=== PATIENT | male | born 1980 | race American Indian/Alaskan Native ===

== ENCOUNTER 2020-04-30 20:27 | Emergency (ER) | payer SELFPAY ==
[2020-04-30 22:41] LABS: Basophils # (Auto) 0.1 K/mm3 (0.0-0.1); Basophils % (Auto) 0.7 % (0.0-1.8); Eosinophils % (Auto) 0.1 % (0.0-4.3); Hematocrit 45.7 % (35.5-45.6); Hemoglobin 14.8 gm/dl (11.8-15.2); Lymphocytes # (Auto) 2.3 K/mm3 (1.2-5.4); Lymphocytes % (Auto) 19.8 % (13.4-35.0); Mean Corpuscular HGB Conc 33 % (32-34); Mean Corpuscular Volume 89 fl (84-94); Monocytes % (Auto) 8.4 % (0.0-7.3); Platelet Count 259 K/mm3 (140-440); Red Blood Count 5.12 M/mm3 (3.65-5.03); Red Cell Distribution Width 14.2 % (13.2-15.2)
[2020-04-30 23:01] LABS: BUN/Creatinine Ratio 8; Blood Urea Nitrogen 10 mg/dL (9-20); Hemolysis Index 70
--- NOTE | 2020-04-30 23:37 | Emergency Department Report ---
<MIRIAM ZHUOLI Brady - Last Filed: 05/01/20 01:57> ED Psych HPI - General Chief Complaint: Psych Stated Complaint: DETOX HOMICIDAL Time Seen by Provider: 04/30/20 23:33 Source: patient Mode of arrival: Ambulatory Limitations: No Limitations - History of Present Illness Initial Comments: Patient is a 40-year-old male that presents emergency room with complaints of homicidal ideations, suicidal ideations, hallucinations, desires detox. Patient states he wants help getting off alcohol. Patient states he is suicidal ideatio ns air his plan is to cut his wrist. Patient states he is homicidal against everybody. Patient states he is seeing visions and hearing voices. Patient denies recent travel. Patient denies recent international travel. Patient denies exposure to the novel coronavirus. Patient denies sick contacts. Patient denies fever and chills. Patient denies cough. Patient denies diarrhea. Patient denies coming in contact with anybody with symptoms of the novel coronavirus. MD Complaint: suicidal ideation, feels depressed, other -: Sudden Associated Psychiatric Symptoms: depression, suicidal ideation, homicidal ideation, racing thoughts, auditory hallucinations, visual hallucinations History of same: Yes Quality: constant Improves With: therapy Worsens With: achohol Context: recent alcohol abuse, not taking psychiatric, significant life stressor Associated Symptoms: denies: confusion, headache, shortness of breath, nausea, vomiting, syncope, insomnia If Self Harm: admits thoughts of, has plan - Related Data Home Medications Medication Instructions Recorded Confirmed Last Taken No Known Home Medications [No 05/01/20 05/01/20 Unknown Reported Home Medications] Allergies Allergy/AdvReac Type Severity Reaction Status Date / Time egg Allergy Anaphylaxis Verified 04/30/20 21:49 ED Review of Systems Constitutional: denies: chills, fever Eyes: denies: eye pain, eye discharge, vision change ENT: denies: ear pain, throat pain Respiratory: denies: cough, shortness of breath, wheezing Cardiovascular: denies: chest pain, palpitations Endocrine: no symptoms reported Gastrointestinal: denies: abdominal pain, nausea, diarrhea Genitourinary: denies: urgency, dysuria Musculoskeletal: denies: back pain, joint swelling, arthralgia Skin: denies: rash, lesions Neurological: denies: headache, weakness, paresthesias Psychiatric: depression, auditory hallucinations, visual hallucinations, homicidal thoughts, suicidal thoughts. denies: anxiety Hematological/Lymphatic: denies: easy bleeding, easy bruising ED Past Medical Hx - Past Medical History Previous Medical History?: Yes Hx Psychiatric Treatment: Yes (Bipolar/ Schizophrenia) - Surgical History Past Surgical History?: No - Family History Family history: no significant - Social History Smoking Status: Never Smoker Substance Use Type: Alcohol - Medications Home Medications: Home Medications Medication Instructions Recorded Confirmed Last Taken Type No Known Home Medications [No 05/01/20 05/01/20 Unknown History Reported Home Medications] ED Physical Exam - General Limitations: No Limitations General appearance: alert, in no apparent distress - Head Head exam: Present: atraumatic, normocephalic - Eye Eye exam: Present: normal appearance - ENT ENT exam: Present: mucous membranes moist - Neck Neck exam: Present: normal inspection - Respiratory Respiratory exam: Present: normal lung sounds bilaterally. Absent: respiratory distress - Cardiovascular Cardiovascular Exam: Present: regular rate, normal rhythm. Absent: systolic murmur, diastolic murmur, rubs, gallop - GI/Abdominal GI/Abdominal exam: Present: soft, normal bowel sounds - Rectal Rectal exam: Present: deferred - Extremities Exam Extremities exam: Present: normal inspection - Back Exam Back exam: Present: normal inspection - Neurological Exam Neurological exam: Present: alert, oriented X3 - Psychiatric Psychiatric exam: Present: flat affect, homicidal ideation, suicidal ideation - Skin Skin exam: Present: warm, dry, intact, normal color. Absent: rash ED Course - Reevaluation(s) Reevaluation #1: Initial evaluation done. Patient placed on a ER hold. 04/30/20 23:34 Reevaluation #2: Patient is medically cleared. Patient will remain in the ER as an ER hold until he is evaluated by psychiatry. Patient's final disposition will come from our psychiatry team. I discussed all results and clinical findings with patient. I discussed plan of care with patient. Patient agrees with plan of care. 05/01/20 01:54 ED Medical Decision Making - Lab Data Result diagrams: 04/30/20 22:15 04/30/20 22:15 - Medical Decision Making Patient is a 40-year-old male that presents emergency room with complaints of suicidal and homicidal ideations, hallucinations, desire detox. Patient had labs done. Patient's labs are essentially unremarkable except for a positive UDS. Patient after initial evaluation was placed on a ER hold. Patient's medically cleared and patient's final disposition will come from our psychiatry mental health team. - Differential Diagnosis Acute psychosis, suicidal ideations, homicidal ideation, detox ED Disposition Clinical Impression: Polysubstance abuse Disposition: [id number]/TX-[id number] PSY HOSP/PSY UNIT Is pt being admited?: No Does the pt Need Aspirin: No Condition: Stable Instructions: Polysubstance Abuse (ED), Suicide Prevention for Adults (ED) Additional Instructions: Outpatient COMMUNITY Behavioral Health Resources: [facility] ([facility]) [address] [place] [address] / Tuesday thru Tuesday - 8am - 5pm [facility] Address: [address] [place] [address] Tuesday thru Tuesday- 7am-2pm [facility] Address: [address] [place] [address] Tuesday thru Tuesday: 8:30AM-5PM SUBSTANCE ABUSE PROGRAMS: [facility]: Location: [place], [place] [facility] Address: [address] [place] [address] [facility]: Address: [address] [place] [address] [facility]: Address: [address] [place] [id number] [facility]: Address: [address] [place] [address] [facility] Address: [address] [place] [address]. Please contact above numbers to attempt placement into free based program. CRISIS RESOURCES [place] Crisis Line: Suicide Prevention Line: Crisis Text Line: Text START to 235673 Emergency: 911 Referrals: CHRISTIANNE BUTTERFIELD MD [Primary Care Provider] - 2-3 Days Time of Disposition: 01:57 <SEGUNDO SALGADO S - Last Filed: 05/01/20 12:58> ED Review of Systems ROS: Stated complaint: DETOX HOMICIDAL Other details as noted in HPI ED Course Vital Signs 04/30/20 05/01/20 05/01/20 21:48 02:30 07:06 Temperature 98.5 F 98.4 F Pulse Rate 109 H 96 H Respiratory 17 18 16 Rate Blood Pressure 128/78 Blood Pressure 112/76 [Left] O2 Sat by Pulse 98 97 Oximetry 05/01/20 09:08 Temperature 98.2 F Pulse Rate 82 Respiratory 20 Rate Blood Pressure Blood Pressure 114/73 [Left] O2 Sat by Pulse 98 Oximetry ED Medical Decision Making - Lab Data Result diagrams: 04/30/20 22:15 04/30/20 22:15 - Medical Decision Making Patient was seen by the mental health assessment team. He came in after using multiple different illicit substances which caused him to have some drug-induced psychosis. At the time of my evaluation the patient is awake, alert, oriented, calm and appropriate. He denies any suicidal or homicidal ideations. He has been provided outpatient resources. He has been instructed to return to the ER with any worsening of his symptoms, thoughts of harming himself or others, or with any acute distress. Critical care attestation.: If time is entered above; I have spent that time in minutes in the direct care of this critically ill patient, excluding procedure time. ED Disposition Is pt being admited?: No
[2020-05-01 00:14] LABS: Amphetamine Screen,Urine PRESUMPTIVE POSITIVE; Benzodiazepines Screen,Urine PRESUMPTIVE NEGATIVE; Cannabinoid Screen,Urine PRESUMPTIVE POSITIVE; Cocaine Screen,Urine PRESUMPTIVE POSITIVE; Methadone Screen,Urine PRESUMPTIVE NEGATIVE; Opiate Screen,Urine PRESUMPTIVE NEGATIVE
[2020-05-01 00:17] LABS: Bilirubin,Urine NEG (Negative); Blood,Urine NEG (Negative); Color,Urine Amber (Yellow); Mucus,Urine FEW /HPF
[2020-05-01] MEDS ORDERED: ZIPRASIDONE MESYLATE 20 MG VIAL IM ONE (01:21)
[2020-05-01] MEDS ORDERED: SODIUM CHLORIDE P/F VIAL 10 ML 10 ML ONE (01:27)
[2020-05-01 09:09] VITALS: BP 114/73
[2020-05-01] MEDS ORDERED: LORazepam 2 MG/ML VIAL IM ONE (11:04)
[2020-05-01] MEDS ORDERED: LORazepam 2 MG/ML VIAL ONE (11:07)
== END 2020-05-01 13:02 ==
LOC: ED 20:27
DX: F19.10 Other psychoactive substance abuse, uncomplicated (principal); F25.0 Schizoaffective disorder, bipolar type; Z91.012 Allergy to eggs
CPT/HCPCS: 36415; 80048; 80307; 81001; 85025; 96372; 99284; J2060; J3486; 80320; G0480

== ENCOUNTER 2020-05-01 23:36 | Emergency (ER) | payer SELFPAY ==
--- NOTE | 2020-05-02 04:02 | Emergency Department Report ---
HPI - [facility] HPI: Room 16 The patient is a 40-year-old male present with a chief complaint of polysubstance abuse. Patient states he came to the emergency department because he is seeking detox from alcohol, cocaine and methamphetamines. Patient admits to consuming approximately 1/5 of liquor daily and he last consumed this evening. Patient also admits to cocaine and methamphetamine use. Patient denies suicidal or homicidal ideation. Patient denies auditory visual hallucinations <JOVON RAMIREZ - Last Filed: 05/02/20 03:59> <JERAD DURAN - Last Filed: 05/02/20 08:31> - General Chief Complaint: Psych Time Seen by Provider: 05/02/20 03:49 ED Past Medical Hx - Past Medical History Previous Medical History?: Yes Hx Psychiatric Treatment: Yes (Bipolar/ Schizophrenia) - Surgical History Past Surgical History?: No - Family History Family history: no significant - Social History Smoking Status: Current Every Day Smoker (1 pack/day) Substance Use Type: Alcohol (1/5 of liquor daily), Cocaine, Marijuana, Methamphetamines <JOVON RAMIREZ - Last Filed: 05/02/20 03:59> <JERAD DURAN - Last Filed: 05/02/20 08:31> - Medications Home Medications: Home Medications Medication Instructions Recorded Confirmed Last Taken Type No Known Home Medications [No 05/01/20 05/01/20 Unknown History Reported Home Medications] ED Review of Systems ROS: Stated complaint: DETOX Other details as noted in HPI Constitutional: no symptoms reported Respiratory: no symptoms reported Endocrine: no symptoms reported Psychiatric: denies: auditory hallucinations, visual hallucinations, homicidal thoughts, suicidal thoughts <JOVON RAMIREZ - Last Filed: 05/02/20 03:59> ROS: Stated complaint: DETOX Other details as noted in HPI <JERAD DURAN - Last Filed: 05/02/20 08:31> Physical Exam - Physical Exam Vital Signs: Vital Signs 05/02/20 01:49 Temperature 98.6 F Pulse Rate 79 Respiratory 18 Rate Blood Pressure 125/94 O2 Sat by Pulse 100 Oximetry Physical Exam: GENERAL: The patient is well-developed well-nourished male lying on stretcher not appearing to be in acute distress. [] HEENT: Normocephalic. Atraumatic. Extraocular motions are intact. Patient has moist mucous membranes. NECK: Supple. Trachea midline CHEST/LUNGS: Clear to auscultation. There is no respiratory distress noted. HEART/CARDIOVASCULAR: Regular. There is no tachycardia. There is no gallop rub or murmur. ABDOMEN: Abdomen is soft, nontender. Patient has normal bowel sounds. There is no abdominal distention. SKIN: There is no rash. There is no edema. There is no diaphoresis. NEURO: The patient is awake, alert, and oriented. The patient is cooperative. The patient has normal speech MUSCULOSKELETAL: There is no evidence of acute injury. <JOVON RAMIREZ - Last Filed: 05/02/20 03:59> - Physical Exam Vital Signs: Vital Signs 05/02/20 05/02/20 01:49 08:18 Temperature 98.6 F 98.9 F Pulse Rate 79 68 Respiratory 18 18 Rate Blood Pressure 125/94 Blood Pressure 132/79 [Left] O2 Sat by Pulse 100 99 Oximetry <JERAD DURAN - Last Filed: 05/02/20 08:31> ED Course Vital Signs 05/02/20 01:49 Temperature 98.6 F Pulse Rate 79 Respiratory 18 Rate Blood Pressure 125/94 O2 Sat by Pulse 100 Oximetry <JOVON RAMIREZ - Last Filed: 05/02/20 03:59> Vital Signs 05/02/20 05/02/20 01:49 08:18 Temperature 98.6 F 98.9 F Pulse Rate 79 68 Respiratory 18 18 Rate Blood Pressure 125/94 Blood Pressure 132/79 [Left] O2 Sat by Pulse 100 99 Oximetry <JERAD DURAN - Last Filed: 05/02/20 08:31> ED Medical Decision Making - Differential Diagnosis Polysubstance abuse <JOVON RAMIREZ - Last Filed: 05/02/20 03:59> - Lab Data Result diagrams: 05/02/20 04:04 05/02/20 04:04 - Medical Decision Making Patient presents to the hospital with polysubstance abuse requesting detox. Patient is not qualify for inpatient detox and provided outpatient resources. He does not endorse suicidal homicidal ideation or psychosis. Vital signs remained stable <JERAD DURAN - Last Filed: 05/02/20 08:31> Critical care attestation.: If time is entered above; I have spent that time in minutes in the direct care of this critically ill patient, excluding procedure time. <JOVON RAMIREZ - Last Filed: 05/02/20 03:59> Critical Care Time: No Critical care attestation.: If time is entered above; I have spent that time in minutes in the direct care of this critically ill patient, excluding procedure time. <JERAD DURAN - Last Filed: 05/02/20 08:31> ED Disposition <JOVON RAMIREZ - Last Filed: 05/02/20 03:59> Is pt being admited?: No Does the pt Need Aspirin: No Time of Disposition: :31 <JERAD DURAN - Last Filed: 05/02/20 08:31> Clinical Impression: Polysubstance abuse Disposition: DC-01 TO HOME OR SELFCARE Condition: Stable Instructions: Polysubstance Abuse (ED) Additional Instructions: Follow-up with your doctor or doctor/clinic provided. Referred to the substance abuse programs provided. Return if symptoms worsen as indicated by your discharge instructions. Referrals: CHRISTIANNE BUTTERFIELD MD [Primary Care Provider] - 3-5 Days
[2020-05-02 05:04] LABS: Basophils # (Auto) 0.1 K/mm3 (0.0-0.1); Basophils % (Auto) 1.2 % (0.0-1.8); Eosinophils # (Auto) 0.1 K/mm3 (0.0-0.4); Eosinophils % (Auto) 0.7 % (0.0-4.3); Hematocrit 39.7 % (35.5-45.6); Hemoglobin 13.1 gm/dl (11.8-15.2); Lymphocytes # (Auto) 2.3 K/mm3 (1.2-5.4); Lymphocytes % (Auto) 27.1 % (13.4-35.0); Mean Corpuscular HGB Conc 33 % (32-34); Mean Corpuscular Volume 89 fl (84-94); Monocytes # (Auto) 0.7 K/mm3 (0.0-0.8); Platelet Count 234 K/mm3 (140-440); Red Blood Count 4.48 M/mm3 (3.65-5.03); Red Cell Distribution Width 14.4 % (13.2-15.2)
[2020-05-02 05:06] LABS: Mucus,Urine FEW /HPF
[2020-05-02 05:19] LABS: Alanine Aminotransferase 21 units/L (7-56); Albumin 4.6 g/dL (3.9-5); BUN/Creatinine Ratio 17; Blood Urea Nitrogen 15 mg/dL (9-20); Calcium 9.4 mg/dL (8.4-10.2); Hemolysis Index 3
[2020-05-02 05:19] LABS: Bacteria,Urine 1+ /HPF (Negative); Bilirubin,Urine NEG (Negative); Blood,Urine SM (Negative); Color,Urine Yellow (Yellow); Protein,Urine <15 mg/dL mg/dL (Negative)
[2020-05-02 06:59] LABS: Amphetamine Screen,Urine PRESUMPTIVE POSITIVE; Benzodiazepines Screen,Urine PRESUMPTIVE NEGATIVE; Cannabinoid Screen,Urine PRESUMPTIVE POSITIVE; Cocaine Screen,Urine PRESUMPTIVE POSITIVE; Methadone Screen,Urine PRESUMPTIVE NEGATIVE; Opiate Screen,Urine PRESUMPTIVE NEGATIVE
[2020-05-02 08:19] VITALS: BP 132/79
== END 2020-05-02 08:50 | disposition home or self-care (01) ==
LOC: ED 23:36 → EEVIPCON 23:36 → ED 05-02 08:50
DX: F15.10 Other stimulant abuse, uncomplicated (principal); F31.9 Bipolar disorder, unspecified; F20.89 Other schizophrenia; F17.210 Nicotine dependence, cigarettes, uncomplicated; F14.10 Cocaine abuse, uncomplicated; F12.10 Cannabis abuse, uncomplicated; Z91.012 Allergy to eggs
CPT/HCPCS: 36415; 80053; 80307; 80320; 81001; 85025; G0480